=== PATIENT | female | born 1995 | race Caucasian/White ===

== ENCOUNTER 2019-06-19 01:12 | Inpatient (IN) | payer OTHER, MEDICAID ==
[~2019-06-19] VITALS: Ht 157.5 cm; Wt 68.0 kg
[2019-06-19] MEDS ORDERED: SODIUM CHLORIDE 0.9% 1,000 ML IV ONE (02:54)
[2019-06-19] MEDS ORDERED: FAMOTIDINE 20MG/2ML VIAL IV STA (02:54)
[2019-06-19 03:06] LABS: BASOPHILS % 0.3 % (0.0-2.0); EOSINOPHILS % 0.9 % (0.0-5.0); HEMATOCRIT. 40.2 % (36.0-48.0); HEMOGLOBIN. 13.3 g/dL (12.0-16.0); LYMPHOCYTES % 14.6 % (20.0-50.0); MEAN CORPUSCULAR HEMOGLOBIN 26.2 pg (28.0-32.0); MEAN PLATELET VOLUME 9.9 fl (7.4-10.4); MONOCYTES % 3.7 % (2.0-8.0); NEUTROPHILS % 80.5 % (40.0-76.0); PLATELET 288 x1000/uL (130-400); RED BLOOD CELL COUNT 5.09 mill/uL (4.2-5.4); RED CELL DISTRIBUTION WIDTH 14.3 % (11.6-14.6)
[2019-06-19 03:09] LABS: CHLORIDE 102 mEq/L (98-107)
[2019-06-19 03:12] LABS: HCG SCREEN NEGATIVE
[2019-06-19 03:14] LABS: PROTHROMBIN TIME 10.2 sec (9.6-11.0)
[2019-06-19 06:36] LABS: CLARITY URINE CLEAR (CLEAR); COLOR URINE YELLOW (YELLOW); KETONES URINE NEGATIVE (NEGATIVE); LEUKOCYTE ESTERASE URINE NEGATIVE (NEGATIVE); NITRITE URINE NEGATIVE (NEGATIVE); OCCULT BLOOD URINE NEGATIVE (NEGATIVE); PH URINE 8.5 (4.5-8.0); PROTEIN URINE NEGATIVE (NEGATIVE); UROBILINOGEN URINE 0.2 E.U./dL (0.2-1.0)
[2019-06-19] MEDS ORDERED: CEFTRIAXONE 1 G PREMIX 50 ML IV ONE (06:45)
[2019-06-19] MEDS ORDERED: KETOROLAC 30MG/ML VIAL IV ONE (07:00)
[2019-06-19 08:00] VITALS: BP 102/64
[2019-06-19 08:30] VITALS: BP 100/70
[2019-06-19] MEDS ORDERED: LORAZEPAM 0.5MG TABLET PO PRN (09:00)
[2019-06-19] MEDS ORDERED: HYDROCODONE/ACETAMINOPHEN 5/325MG TABLET PO PRN (09:00)
[2019-06-19] MEDS ORDERED: CLONIDINE 0.1MG TABLET PO PRN (09:00)
[2019-06-19] MEDS ORDERED: ONDANSETRON HCL 4MG/2ML INJ IV PRN (09:00)
[2019-06-19] MEDS ORDERED: DOCUSATE SODIUM 100MG CAPSULE PO PRN (09:00)
[2019-06-19] MEDS ORDERED: ACETAMINOPHEN 325MG TABLET PO PRN (09:00)
[2019-06-19] MEDS: METRONIDAZOLE 500 MG PREMIX 100 ML IV SCH ×2 (11:05→18:03)
[2019-06-19] MEDS: SODIUM CHLORIDE 0.9% 1,000 ML IV SCH ×2 (11:06→18:03)
[2019-06-19 12:00] VITALS: BP 109/62
[2019-06-19 13:18] LABS: *AMPHETAMINES SCREEN URINE NEGATIVE (NEGATIVE); *BARBITURATES SCREEN URINE NEGATIVE (NEGATIVE); *BENZODIAZEPINES SCREEN URINE NEGATIVE (NEGATIVE); *COCAINE SCREEN URINE NEGATIVE (NEGATIVE); METHADONE URINE SCREEN NEGATIVE (NEGATIVE); OPIATES URINE SCREEN NEGATIVE (NEGATIVE)
[2019-06-19 13:19] LABS: PHENCYCLIDINE URINE SCREEN NEGATIVE (NEGATIVE)
[2019-06-19 13:20] LABS: CANNABINOID URINE SCREEN PRESUMTIVE POSITIVE (NEGATIVE)
[2019-06-19 16:00] VITALS: BP 91/50
[2019-06-19] MEDS: PANTOPRAZOLE 40MG DR TABLET PO SCH (17:22)
[2019-06-19] MEDS: SUCRALFATE 1 G/10 ML UDC PO SCH ×2 (17:23→21:51)
[2019-06-19 20:00] VITALS: BP 110/78
[2019-06-20] VITALS: BP 96/58
[2019-06-20] MEDS: METRONIDAZOLE 500 MG PREMIX 100 ML IV SCH ×3 (03:51→18:10)
[2019-06-20] MEDS: SODIUM CHLORIDE 0.9% 1,000 ML IV SCH ×2 (03:52→16:27)
[2019-06-20 04:00] VITALS: BP 92/55
[2019-06-20 06:23] LABS: BASOPHILS % 0.5 % (0.0-2.0); EOSINOPHILS % 2.8 % (0.0-5.0); HEMATOCRIT. 34.4 % (36.0-48.0); HEMOGLOBIN. 11.7 g/dL (12.0-16.0); MEAN CORPUSCULAR HEMOGLOBIN 26.7 pg (28.0-32.0); MEAN CORPUSCULAR VOLUME 78.5 fL (81.0-99.0); MEAN PLATELET VOLUME 9.9 fl (7.4-10.4); NEUTROPHILS % 51.7 % (40.0-76.0); PLATELET 241 x1000/uL (130-400); RED BLOOD CELL COUNT 4.38 mill/uL (4.2-5.4); RED CELL DISTRIBUTION WIDTH 14.2 % (11.6-14.6)
[2019-06-20 06:44] LABS: CHLORIDE 108 mEq/L (98-107)
[2019-06-20 08:00] VITALS: BP 110/71
[2019-06-20] MEDS: CEFTRIAXONE 1 G PREMIX 50 ML IV SCH (08:46)
[2019-06-20] MEDS: SUCRALFATE 1 G/10 ML UDC PO SCH ×4 (08:51→20:07)
[2019-06-20] MEDS: PANTOPRAZOLE 40MG DR TABLET PO SCH ×2 (08:51→16:28)
[2019-06-20] MEDS ORDERED: POTASSIUM CHLORIDE 20MEQ TABLET SR PO SCH (09:00)
[2019-06-20 12:00] VITALS: BP 103/67
[2019-06-20 16:00] VITALS: BP 100/65
[2019-06-20 20:00] VITALS: BP 108/60
[2019-06-21] VITALS: BP 109/62
[2019-06-21] MEDS: METRONIDAZOLE 500 MG PREMIX 100 ML IV SCH ×3 (03:00→19:01)
[2019-06-21 04:00] VITALS: BP 103/62
[2019-06-21] MEDS ORDERED: SKIN ADHESIVE 0.7 GM EA TOP ONE (06:53)
[2019-06-21] MEDS ORDERED: BUPIVACAINE HCL 0.5% (5MG/ML) 50ML ONE (06:53)
[2019-06-21 07:08] LABS: BASOPHILS % 0.3 % (0.0-2.0); EOSINOPHILS % 2.9 % (0.0-5.0); HEMATOCRIT. 38.9 % (36.0-48.0); HEMOGLOBIN. 13.3 g/dL (12.0-16.0); LYMPHOCYTES % 31.3 % (20.0-50.0); MEAN CORPUSCULAR HEMOGLOBIN 26.9 pg (28.0-32.0); MEAN CORPUSCULAR VOLUME 78.8 fL (81.0-99.0); MEAN PLATELET VOLUME 9.7 fl (7.4-10.4); MONOCYTES % 6.3 % (2.0-8.0); NEUTROPHILS % 59.2 % (40.0-76.0); PLATELET 267 x1000/uL (130-400); RED BLOOD CELL COUNT 4.93 mill/uL (4.2-5.4); RED CELL DISTRIBUTION WIDTH 14.2 % (11.6-14.6)
[2019-06-21 07:09] LABS: CHLORIDE 109 mEq/L (98-107)
[2019-06-21] MEDS: SUCRALFATE 1 G/10 ML UDC PO SCH ×3 (07:20→17:20)
[2019-06-21] MEDS ORDERED: FENTANYL CITRATE/PF 50MCG/ML 2ML VIAL ONE ×2 (07:51→08:09)
[2019-06-21] MEDS ORDERED: CEFAZOLIN SODIUM 1000MG/VIAL ONE (07:52)
[2019-06-21] MEDS ORDERED: DEXAMETHASONE 4MG/ML 1ML VIAL ONE (07:52)
[2019-06-21] MEDS ORDERED: LIDOCAINE HCL/PF 1% 10 MG/ML 5ML VIAL ONE (07:52)
[2019-06-21] MEDS ORDERED: ROCURONIUM BROMIDE 10MG/ML VIAL 5ML IV ONE (07:52)
[2019-06-21] MEDS ORDERED: GLYCOPYRROLATE 0.2 MG/ML 2ML VIAL ONE (07:52)
[2019-06-21] MEDS ORDERED: METOCLOPRAMIDE HCL 10MG/2ML VIAL ONE (07:52)
[2019-06-21] MEDS ORDERED: SUCCINYLCHOLINE CHLORIDE 200MG/10ML IV ONE (07:52)
[2019-06-21] MEDS ORDERED: MIDAZOLAM HCL 2 MG/2 ML VIAL ONE (07:52)
[2019-06-21] MEDS ORDERED: SODIUM CHLORIDE 0.9% 10ML VIAL ONE (07:52)
[2019-06-21] MEDS ORDERED: PROPOFOL 200MG/20ML VIAL IV ONE (07:52)
[2019-06-21] MEDS ORDERED: NEOSTIGMINE METHYLSULFATE 1MG/ML 10 ML VIAL ONE (07:52)
[2019-06-21] MEDS ORDERED: MORPHINE SULFATE 2 MG/ML CPJ (NOT FOR IM USE) IV PRN ×2 (08:00→08:15)
[2019-06-21] MEDS ORDERED: HYDROCODONE/ACETAMINOPHEN 5/325MG TABLET PO PRN ×2 (08:00)
[2019-06-21] MEDS ORDERED: ONDANSETRON HCL 4MG/2ML INJ IV PRN ×2 (08:00→08:15)
[2019-06-21] MEDS ORDERED: MORPHINE SULFATE 4 MG/ML CPJ (NOT FOR IM USE) IV PRN (08:00)
[2019-06-21] MEDS ORDERED: SODIUM CHLORIDE 0.9% 1,000 ML IV ONE (08:15)
[2019-06-21] MEDS ORDERED: MEPERIDINE HCL/PF 25MG/ML CPJ IV PRN ×2 (08:15)
[2019-06-21] MEDS: PANTOPRAZOLE 40MG DR TABLET PO SCH ×2 (09:00→17:20)
[2019-06-21] MEDS: CEFTRIAXONE 1 G PREMIX 50 ML IV SCH (09:00)
[2019-06-21] MEDS ORDERED: DEXT 5%/0.45% NACL KCL 20MEQ/L 1,000 ML IV SCH (09:00)
[2019-06-21] MEDS: HYDROMORPHONE HCL/PF 2MG/ML CPJ IV PRN ×2 (10:53→11:06)
[2019-06-21 12:00] VITALS: BP 113/74
[2019-06-21] MEDS ORDERED: SODIUM CHLORIDE 0.9% INJ 3ML FLUSH IVF SCH (14:00)
[2019-06-21 15:46] VITALS: BP 102/61
[2019-06-21 16:07] VITALS: BP 106/67
[2019-06-21 20:00] VITALS: BP_SYST 102; BP_SYST 123; BP_DIAS 61; BP_DIAS 80
== END 2019-06-21 20:30 | disposition home IV services (08) | DRG 263 ==
LOC: ER 01:12 → 6EST 06:48 → EDBEDREQ 06:50 → EDBEDREQTM 06:50 → ENRESERV 07:20
PROVIDERS: ADMIT Internal Medicine; ATTEND Internal Medicine
PROC: 0FT44ZZ Resection of Gallbladder, Percutaneous Endoscopic Approach (ICD-10-PCS; principal; 2019-06-21)
DX: K80.01 Calculus of gallbladder with acute cholecystitis with obstruction (principal)
CPT/HCPCS: 36415; 76705; 78227; 80048; 80305; 81003; 84703; 88304; 93005; 93970; 99285; A9537; J0330; J0690; J0696; J1100; J1170; J1885; J2175; J2250; J2405; J2704; J2710; J2765; J3010; J3490; J7030